=== PATIENT | male | born 1980 | race Caucasian/White ===

== ENCOUNTER 2020-10-17 08:40 | Outpatient (REF) | payer BC, SELFPAY ==
[2020-10-17 09:29] LABS: MANUAL DIFF FLAG NO
[2020-10-17 09:46] LABS: Glucose Urine UA NEG (NEG); Leukocyte Esterase Urine NEG (NEG); Nitrite Urine NEG (NEG); PH 7.5 (5.0-8.0); Urine Blood NEG (NEG); Urine Ketones NEG (NEG); Urine Protein NEG (NEG-TRACE)
[2020-10-17 09:47] LABS: Basophils Absolute Auto 0.1 X10*3/uL (0.0-0.2); Basophils Percent Auto 0.8 % (0-2); Eosinophils Absolute Auto 0.4 X10*3/uL (0.0-0.4); Eosinophils Percent Auto 5.3 % (0-4); Hematocrit 49.4 % (42-52); Hemoglobin 16.5 g/dl (14.0-18.0); Imm Gran Abs Auto 0.01 X10*3/uL (0.00-0.03); Imm Gran Pct Auto 0.1 % (0.0-0.4); Lymphocytes Absolute Auto 1.9 X10*3/uL (1.2-4.9); Lymphocytes Percent Auto 23.3 % (20-40); Mean Corpuscular HGB Conc 33.4 g/dl (31.0-36.0); Mean Corpuscular Hemoglobin 30.4 pg (27.0-33.0); Mean Corpuscular Volume 91.1 fL (80-98); Mean Platelet Volume 11.6 fL (9.4-12.4); Monocytes Absolute Auto 0.4 X10*3/uL (0.1-1.2); Monocytes Percent Auto 5.1 % (2-11); Neutrophils Absolute Auto 5.2 X10*3/uL (2.0-8.3); Neutrophils Percent Auto 65.4 % (45-73); Platelet Count 160 X10*3/uL (160-400); Red Blood Count 5.42 X10*6/uL (4.60-5.80); Red Cell Distribution Width 14.2 % (11.0-16.0)
[2020-10-17 09:48] LABS: Appearance Urine CLEAR; Color Urine YELLOW
[2020-10-17 09:57] LABS: Alanine Aminotransferase 33 U/L (0-40); Albumin Level 4.3 g/dL (3.5-5.0); Alkaline Phosphatase 63 U/L (39-117); Anion Gap 12 (12-20); Aspartate Amino Transferase 21 U/L (5-37); Bilirubin Total 0.7 mg/dL (0.0-1.0); Blood Urea Nitrogen 13 mg/dL (9-16); Calcium 8.6 mg/dL (8.4-10.2); Carbon Dioxide 25 mmol/L (22-29); Chloride 108 mmol/L (96-108); Cholesterol 176 mg/dL; Estimated Glomerular Filt Rate > 60; Glucose Random 99 mg/dL (60-115); HDL Cholesterol 42 mg/dL; LDL Cholesterol Calculated 121 mg/dl; Potassium 4.3 mmol/L (3.3-5.1); Sodium 141 mmol/L (135-145); Total Protein 6.5 g/dL (6.5-8.0); Triglycerides 65 mg/dL
[2020-10-17 10:26] LABS: Free T4 (Free Thyroxine) 1.02 ng/dL (0.71-1.85); Thyroid Stimulating Hormone 1.49 uIU/mL (0.32-4.0)
[2020-10-17 10:57] LABS: Prostate Specific Antigen Scr 0.69 ng/mL (<0.05-4.0)
[2020-10-19 04:29] LABS: Folate 11.3 ng/mL (> or = 4.0); Vitamin B12 787 pg/mL (200-900)
[2020-10-21 17:22] LABS: Testosterone, Total 484 ng/dL (250-1100)
== END 2020-10-17 08:41 | disposition home or self-care (01) ==
LOC: HO.LAB 08:40
PROVIDERS: PCP Internal Medicine; Visit Provider Internal Medicine
DX: Z12.5 Encounter for screening for malignant neoplasm of prostate (principal); N52.9 Male erectile dysfunction, unspecified; E78.00 Pure hypercholesterolemia, unspecified; R32 Unspecified urinary incontinence
CPT/HCPCS: 36415; 80053; 80061; 81003; 82607; 82746; 84153; 84403; 84439; 84443; 85025

== ENCOUNTER 2020-10-21 15:16 | Outpatient (REF) | payer BC, SELFPAY ==
--- NOTE | ~2020-10-21 | US_ITS ---
EXAMINATION: US PELVIS LIMITED (BLADDER) CLINICAL INFORMATION: Unspecified urinary incontinence. COMPARISON: Ultrasound abdomen complete 02/26/2019. TECHNIQUE: Real-time imaging of the bladder. Grayscale imaging and color Doppler are performed. FINDINGS: The bladder is distended symmetrically and shows no focal wall thickening, diverticulum, or bladder calculus. No debris at bladder base. There are bilateral ureteral jets at the bladder base as expected. Prevoid bladder volume 425 mL. Post void bladder residual volume 21 mL. The prostate volume is 49 mL. US/US bladder IMPRESSION: 1. No focal bladder wall thickening, diverticulum, or debris at bladder base. 2. Post void bladder residual volume 21 mL. 3. Prostate volume 49 mL.
== END 2020-10-21 15:17 | disposition home or self-care (01) ==
LOC: HO.HMGCX 15:16
PROVIDERS: PCP Internal Medicine; Visit Provider Internal Medicine
DX: R32 Unspecified urinary incontinence (principal)
CPT/HCPCS: 76857

== ENCOUNTER 2024-06-11 15:03 | Outpatient (AMB) | payer OTHER, SELFPAY ==
--- NOTE | 2024-06-11 15:07 | MHC.PC.OV ---
Vital Signs 06/11/24 15:09 Height 5 ft 11 in Weight 216 lb 2 oz BMI 30.1 BP 150/90 H Blood Pressure Location Lt brachial Position Sitting Pulse 88 Pulse Source Pulse Oximeter Pulse Oximetry (%) 97 Oxygen Delivery Method Room Air Intake Visit Reasons: Muscle pain Intake Note: Patient is here to follow up on Muscle pain all over body. Centrifugal Screen Tender Required: No Hose Operator: Not Required per policy Accompanied by: Self / Same As Patient Allergies No Known Allergies [No Known Allergies*] Allergy (Verified 06/17/24 15:09) Tobacco use date assessed: 06/11/24 Dental Screening Dental Screen Date: 06/11/24 Did you have a dental visit in the last 12 months?: No Did you have a dental problem in the last 6 months where you did not have access to dental care?: No Was dental information given to patient?: Patient has dentist HPI Muscle pain HPI Details 44-year-old male presents to the office for a sick visit. Patient has been complaining of muscle aches for the past few months. His job involves lifting heavy objects and loads. He feels sore all over. He is able to function and do all activities of daily living. Able to work at the same level. Patient was hunting in the summer and had a few tick bites. Not passing any high colored urine. No rash on the body. Continues to smoke. [facility] Medical History Obesity (BMI 30-39.9) Tobacco abuse Obstructive sleep apnea GERD (gastroesophageal reflux disease) Surgical History No pertinent past surgical history Family History Father No problems noted. Mother Bipolar 1 disorder Maternal Grandfather Polycythemia Sister Bipolar 1 disorder Ovarian ca Daughter Crohn's disease Paternal Grandfather Myocardial infarct Other Mental health problem Social History Housing: Apartment Alcohol intake: current Alcohol intake frequency: does not drink Patient Tobacco Use Status: Current everyday Tobacco user Tobacco use type: Cigarette Cigarette Packs Per Day: 1 Cigarettes Per Day: 20 e-Cigarette/Vaping Use: Never Used Second Hand Smoke Exposure: Yes service: No Current occupational status: employed Cognitive needs: No Hearing needs: No Vision needs: No Questionnaire PHQ-9 Over the last 2 weeks, how often have you been bothered by any of the following problems? 1. Little interest or pleasure in doing things: not at all 2. Feeling down, depressed, or hopeless: not at all 3. Trouble falling or staying asleep, or sleeping too much: not at all 4. Feeling tired or having little energy: not at all 5. Poor appetite or overeating: not at all 6. Feeling bad about yourself - or that you are a failure or have let yourself or your family down: not at all 7. Trouble concentrating on things, such as reading the newspaper or watching television: not at all 8. Moving or speaking so slowly that other people could have noticed. Or the opposite - being so fidgety or restless that you have been moving around a lot more than usual: not at all 9. Thoughts that you would be better off or of hurting yourself in some way: not at all Total score: 0 Depression Screening Interpretation: Negative Depression Screening Done: Yes Source: Developed by Drs. Giorgio Ruiz, Kay Lind, Raj Joseph and colleagues, with an educational jerome from [employer]. Thrive Questionnaire Date Thrive assessed: 06/11/24 I am a: Patient What is your living situation today?: I have a steady place to live Within the past 12 months, did the food you bought not last and you didn't have the money to get more?: Never true Within the past 12 months, did you worry whether your food would run out before you got money to buy more?: Never true Do you have trouble paying for medicines?: No Do you have trouble getting transportation to medical appointments?: No Do you have trouble paying your heating and electricity bill?: No Do you have trouble taking care of your child, family member or friend?: No Do you have trouble with day-to-day activities such as bathing, preparing meals, shopping, managing finances, etc.?: No Are you currently unemployed and looking for a job?: No Are you interested in more education?: No Currently or been in a relationship where the following occur: No concerns reported THRIVE Score: 0 AUDIT C Alcohol Use Questionnaire (AUDIT-C) 1. How often do you have a drink containing alcohol?: Never Total Score: 0 TED-7 AMB Questionnaire TED-7 Date TED - 7 assessed: 06/11/24 Feeling nervous, anxious, or on edge: 0 = Not at all Not being able to stop or control worryin = Not at all Worrying too much about different things: 0 = Not at all Trouble relaxin = Not at all Being so restless that it is hard to sit still: 0 = Not at all Becoming easily annoyed or irritable: 0 = Not at all Feeling afraid as if something awful might happen: 0 = Not at all Total TED-7 score (0-4 normal; 5-9 mild; 10-14 moderate; 15-21 severe): 0 Source: Developed by Drs. Giorgio Ruiz, Kay Lind, Raj Joseph and colleagues, with an educational jerome from [employer]. Physical exam (Primary Care) Vital Signs: Last Vital Signs Pulse 88 06/11/24 15:09 BP 150/90 H 06/11/24 15:09 Pulse Ox 97 06/11/24 15:09 Oxygen Delivery Method Room Air 06/11/24 15:09 BMI result Body Mass Index 30.1 Tobacco/Smoking Status: Tobacco use Status Tobacco use date assessed 06/11/24 06/11/24 15:13 Patient Tobacco Use Status Current everyday Tobacco 06/11/24 15:13 Tobacco use type Cigarette 06/11/24 15:13 e-Cigarette/Vaping Use Never Used 06/11/24 15:13 PHQ-9: PHQ-9 Score PHQ-9: Total score 0 06/11/24 15:14 Depression Screening Interpretation: Negative Thrive Assessment: Date of Thrive Assessment Date Thrive assessed 06/11/24 06/11/24 15:13 Currently or been in a relationship where the following occur: No concerns reported Const General: cooperative and healthy appearing Nutritional Appearance: well nourished Orientation/consciousness: patient oriented x3 Limitations: no limitations HENMT Head: Yes normal to inspection Eyes General: appearance normal, both eyes and all related structures Neck Neck: Yes normal visual inspection Chest Chest palpation & inspection: normal palpation of entire chest wall Resp Effort & Inspection: normal respiratory effort Neuro General: patient oriented x3 Coding Level of Care Code Est Pt Level 4 (46923) Complex EM visit Add On G2211 Diagnoses Myalgia M79.10 Assessment & Plan Assessment & Plan (1) Myalgia: Code(s): M79.10 - Myalgia, unspecified site Plan: Physical exam is unremarkable. Will get blood work done. Recheck in one week. Meloxicam started Orders: Orders Creatine Kinase Total 06/11/24.10 - Myalgia, unspecified site C Reactive Protein 06/11/24 M79.10 - Myalgia, unspecified site Basic Metabolic Panel 06/11/24.10 - Myalgia, unspecified site Lipid Panel 06/11/24.10 - Myalgia, unspecified site Liver Panel 06/11/24.10 - Myalgia, unspecified site Lyme IgG/IgM w/reflex to WB 06/11/24.10 - Myalgia, unspecified site Thyroid Stimulating Hormone 06/11/24.10 - Myalgia, unspecified site Erythrocyte Sedimentation Rate 06/11/24 M.10 - Myalgia, unspecified site UA and rflx microscopic 06/11/24.10 - Myalgia, unspecified site Medications: New meloxicam 15 mg PO DAILY 14 tabs 0RF
[2024-06-11 15:09] VITALS: BP 150/90; PULSE 88; O2SAT 97; BMI 30.1
== END 2024-06-11 15:25 | disposition home or self-care (01) ==
PROVIDERS: PCP Internal Medicine; Visit Provider Internal Medicine
DX: M79.10 Myalgia, unspecified site (principal)

== ENCOUNTER 2024-06-11 15:03 | Outpatient (REF) | payer OTHER, SELFPAY ==
[2024-06-11 16:14] LABS: Appearance Urine Clear; Color Urine Yellow; Glucose Urine UA Negative (Negative); Leukocyte Esterase Urine Negative (Negative); Nitrite Urine Negative (Negative); PH 6.5 (5.0-9.0); Urine Blood Negative (Negative); Urine Ketones Negative (Negative); Urine Protein Negative (Neg-Trace)
[2024-06-11 16:42] LABS: Erythrocyte Sedimentation Rate 2 MM/HR (0-15)
[2024-06-11 16:48] LABS: Albumin Level 4.5 g/dL (3.5-5.0); Anion Gap 12 (12-20); Aspartate Amino Transferase 29 U/L (5-37); Bilirubin Direct 0.2 mg/dL (0.0-0.5); Bilirubin Total 0.4 mg/dL (0.0-1.0); Blood Urea Nitrogen 8 mg/dL (9-16); C Reactive Protein 0.17 mg/dL (< or = 0.50); Calcium 9.3 mg/dL (8.4-10.2); Carbon Dioxide 29 mmol/L (22-29); Chloride 105 mmol/L (96-108); Cholesterol 169 mg/dL (<200); Estimated Glomerular Filt Rate > 60; Glucose Random 95 mg/dL (60-115); HDL Cholesterol 47 mg/dL (>40); LDL Cholesterol Calculated 109 mg/dL (<100); Potassium 4.2 mmol/L (3.3-5.1); Sodium 142 mmol/L (135-145); Triglycerides 65 mg/dL (<150)
[2024-06-11 17:10] LABS: Thyroid Stimulating Hormone 3.42 uIU/mL (0.32-4.0)
[2024-06-11 17:22] LABS: Alanine Aminotransferase 28 U/L (0-40); Alkaline Phosphatase 62 U/L (39-117)
[2024-06-12 18:18] LABS: Lyme Abs Screen <0.90 index
== END 2024-06-11 15:04 | disposition home or self-care (01) ==
LOC: HO.LAB 15:03
PROVIDERS: PCP Internal Medicine; Visit Provider Internal Medicine
DX: Z13.6 Encounter for screening for cardiovascular disorders (principal); M79.10 Myalgia, unspecified site
CPT/HCPCS: 36415; 80048; 80061; 80076; 81003; 82550; 84443; 85652; 86140; 86617; 86618; 96127

== ENCOUNTER 2024-06-17 15:04 | Outpatient (REF) | payer OTHER, SELFPAY ==
[2024-06-17 16:49] LABS: Hemoglobin 16.2 g/dl (14.0-18.0); Mean Corpuscular HGB Conc 33.8 g/dl (31.0-36.0); Mean Corpuscular Hemoglobin 30.9 pg (27.0-33.0); Mean Corpuscular Volume 91.6 fL (80.0-98.0); Mean Platelet Volume 12.3 fL (9.4-12.4); Platelet Count 151 X10*3/uL (160-400); Red Blood Count 5.24 X10*6/uL (4.60-5.80); Red Cell Distribution Width 14.3 % (11.0-16.0); White Blood Count 8.4 X10*3/uL (4.8-10.8)
[2024-06-17 17:13] LABS: Rheumatoid Factor < 13.0 IU/mL (<15.0)
[2024-06-17 17:19] LABS: Anion Gap 10 (12-20); Blood Urea Nitrogen 13 mg/dL (9-16); Calcium 8.5 mg/dL (8.4-10.2); Carbon Dioxide 29 mmol/L (22-29); Chloride 108 mmol/L (96-108); Estimated Glomerular Filt Rate > 60; Glucose Random 102 mg/dL (60-115); Potassium 4.6 mmol/L (3.3-5.1); Sodium 142 mmol/L (135-145)
[2024-06-17 17:33] LABS: Erythrocyte Sedimentation Rate 1 MM/HR (0-15)
== END 2024-06-17 15:05 | disposition home or self-care (01) ==
LOC: HO.LAB 15:04
PROVIDERS: PCP Internal Medicine; Visit Provider Internal Medicine
DX: M79.10 Myalgia, unspecified site (principal)
CPT/HCPCS: 36415; 80048; 82550; 85027; 85652; 86140; 86431

== ENCOUNTER 2024-06-17 15:04 | Outpatient (AMB) | payer OTHER, SELFPAY ==
--- NOTE | 2024-06-17 15:08 | MHC.PC.OV ---
Vital Signs 06/17/24 15:10 Height 5 ft 11 in Weight 218 lb 6 oz BMI 30.5 BP 124/70 Blood Pressure Location Lt brachial Position Sitting Pulse 91 Pulse Source Pulse Oximeter Pulse Oximetry (%) 95 Oxygen Delivery Method Room Air Intake Visit Reasons: 1 week f/u/ lab results Intake Note: Patient is here to follow up on Lab results. Bag Machine Tender Required: No Cover Inspector: Not Required per policy Accompanied by: Self / Same As Patient Allergies No Known Allergies [No Known Allergies*] Allergy (Verified 06/17/24 15:09) Tobacco use date assessed: 06/17/24 Dental Screening Dental Screen Date: 06/11/24 [facility] Medical History Obesity (BMI 30-39.9) Tobacco abuse Obstructive sleep apnea GERD (gastroesophageal reflux disease) Surgical History No pertinent past surgical history Family History Father No problems noted. Mother Bipolar 1 disorder Maternal Grandfather Polycythemia Sister Bipolar 1 disorder Ovarian ca Daughter Crohn's disease Paternal Grandfather Myocardial infarct Other Mental health problem Social History Housing: Apartment Alcohol intake: current Alcohol intake frequency: does not drink Patient Tobacco Use Status: Current everyday Tobacco user Tobacco use type: Cigarette Cigarette Packs Per Day: 1 Cigarettes Per Day: 20 e-Cigarette/Vaping Use: Never Used Second Hand Smoke Exposure: Yes service: No Current occupational status: employed Cognitive needs: No Hearing needs: No Vision needs: No Questionnaire Thrive Questionnaire Date Thrive assessed: 06/11/24 AUDIT C Alcohol Use Questionnaire (AUDIT-C) 3. How often do you have six or more drinks on one occasion?: Never Total Score: 0 TED-7 AMB Questionnaire TED-7 Date TED - 7 assessed: 06/11/24 Source: Developed by Drs. Giorgio Ruiz, Kay Lind, Raj Joseph and colleagues, with an educational jerome from [employer]. Physical exam (Primary Care) Vital Signs: Last Vital Signs Pulse 91 06/17/24 15:10 BP 124/70 06/17/24 15:10 Pulse Ox 95 06/17/24 15:10 Oxygen Delivery Method Room Air 06/17/24 15:10 BMI result Body Mass Index 30.5 Tobacco/Smoking Status: Tobacco use Status Tobacco use date assessed 06/17/24 06/17/24 15:13 Patient Tobacco Use Status Current everyday Tobacco 06/17/24 15:08 Tobacco use type Cigarette 06/17/24 15:08 e-Cigarette/Vaping Use Never Used 06/17/24 15:08 Thrive Assessment: Date of Thrive Assessment Date Thrive assessed 06/11/24 06/17/24 15:08 Coding Level of Care Code Est Pt Level 4 (01267) Complex EM visit Add On G2211 Diagnoses Myalgia M79.10 Assessment & Plan Assessment & Plan (1) Myalgia: Code(s): M79.10 - Myalgia, unspecified site Plan: CBC was not done in the last OV. CK levels were slightly elevated. Physical exam continues to be normal. 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 He spends a lot of time kneeling and crawling. I think his symptoms are from the kind of work he is doing. 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 Inflammatory markers are tested again. Repeat appt in one month. Ok for a televisit. Orders: Orders Complete Blood Count no Diff Today M79.10 - Myalgia, unspecified site Erythrocyte Sedimentation Rate Today M79.10 - Myalgia, unspecified site Rheumatoid Factor Today M79.10 - Myalgia, unspecified site Basic Metabolic Panel Today M79.10 - Myalgia, unspecified site C Reactive Protein Today M79.10 - Myalgia, unspecified site Creatine Kinase Total Today M79.10 - Myalgia, unspecified site
[2024-06-17 15:10] VITALS: BP 124/70; PULSE 91; O2SAT 95; BMI 30.5
== END 2024-06-17 15:48 | disposition home or self-care (01) ==
PROVIDERS: PCP Internal Medicine; Visit Provider Internal Medicine
DX: M79.10 Myalgia, unspecified site (principal)

== ENCOUNTER 2024-08-01 13:56 | Outpatient (AMB) | payer OTHER, SELFPAY ==
--- NOTE | 2024-08-01 13:57 | MHC.PC.OV ---
Intake Visit Reasons: F/U Results Clay Processing Labourer Required: No Bobbin Winder: Not Required per policy Accompanied by: Self / Same As Patient Allergies No Known Allergies [No Known Allergies*] Allergy (Verified 08/01/24 17:29) Medication List - Last Reconciled 08/01/24 by Leila Nava PA-C albuterol sulfate 90 mcg/actuation (ProAir HFA) 2 puffs inhalation QID PRN blood pressure monitor (Blood Pressure Kit) As directed cholecalciferol (vitamin D3) 1,250 mcg PO QWEEK 3 months cyclobenzaprine 10 mg PO Q8H ibuprofen 800 mg PO Q8H omeprazole 20 mg PO DAILY Tobacco use date assessed: 07/18/24 Dental Screening Dental Screen Date: 07/18/24 [facility] Medical History Obesity (BMI 30-39.9) Tobacco abuse Obstructive sleep apnea GERD (gastroesophageal reflux disease) Surgical History No pertinent past surgical history Family History Father No problems noted. Mother Bipolar 1 disorder Maternal Grandfather Polycythemia Sister Bipolar 1 disorder Ovarian ca Daughter Crohn's disease Paternal Grandfather Myocardial infarct Other Mental health problem Social History Housing: Apartment Alcohol intake: current Alcohol intake frequency: does not drink Patient Tobacco Use Status: Current everyday Tobacco user Tobacco use type: Cigarette Cigarette Packs Per Day: 1 Cigarettes Per Day: 20 e-Cigarette/Vaping Use: Never Used Second Hand Smoke Exposure: Yes service: No Current occupational status: employed Cognitive needs: No Hearing needs: No Vision needs: No Questionnaire Thrive Questionnaire Date Thrive assessed: 07/18/24 TED-7 AMB Questionnaire TED-7 Date TED - 7 assessed: 07/18/24 Source: Developed by Drs. Giorgio Ruiz, Kay Lnid, Raj Joseph and colleagues, with an educational jerome from [employer] Physical exam (Primary Care) Tobacco/Smoking Status: Tobacco use Status Tobacco use date assessed 07/18/24 08/01/24 13:58 Patient Tobacco Use Status Current everyday Tobacco 08/01/24 13:58 Tobacco use type Cigarette 08/01/24 13:58 e-Cigarette/Vaping Use Never Used 08/01/24 13:58 Thrive Assessment: Date of Thrive Assessment Date Thrive assessed 07/18/24 08/01/24 13:58 Telehealth Telehealth Telehealth Platform: Telephone Location of provider rendering services: practice address Location of patient: address on file Patient Identification confirmed using: Name, : Yes Telehealth method: voice only Patient verbally consented to treatment: Yes Patient verbally consented to billing insurance company: Yes Patient informed of any privacy concerns related to visit: Yes Minutes spent on Phone/Video with Pt.: 30 Coding Level of Care Code Tele Est Pt Level 4 (07184) Complex EM visit Add On G2211 Diagnoses Myalgia M79.10 Assessment & Plan Assessment & Plan (1) Myalgia: Code(s): M79.10 - Myalgia, unspecified site Category: Medical Plan Plan - Conduct X-rays of the cervical, thoracic, and lumbar spine, as well as bilateral hips, to evaluate musculoskeletal pain. - Referral reinstated to rheumatology for comprehensive autoimmune disorder evaluation. - Continued use of prescribed muscle relaxants at night. - Confirm vitamin D supplementation adherence. - Schedule further imaging and lab work once conducted. Orders: Orders Venous Lead Today M79.10 - Myalgia, unspecified site XR lumbar spine 4V min Today M79.10 - Myalgia, unspecified site XR hip BI w PEL1V Today M79.10 - Myalgia, unspecified site XR thoracic spine 3V Today M79.10 - Myalgia, unspecified site XR cervical spine min 6V Today M79.10 - Myalgia, unspecified site Medications: New ibuprofen 800 mg PO Q8H 90 tabs 1RF Discontinued meloxicam Discontinued Reason: Doctor's Order 15 mg PO DAILY 14 tabs 0RF meloxicam Discontinued Reason: Doctor's Order 15 mg PO DAILY 30 tabs 1RF Patient Instructions: Patient Instructions - Continue muscle relaxants as prescribed, taking them at night with food. - Adhere to the vitamin D regimen as previously recommended. - Undergo imaging studies and additional testing as soon as possible. - Monitor for any new or worsening symptoms, specifically joint pain, and report back if necessary. - Avoid physically strenuous activities to prevent exacerbation of symptoms. - Follow the rheumatology referral process to expedite the consultation. Scribe Plan - Not visible on output: History of Present Illness The patient is a 44-year-old male presenting with muscular pain. The pain has been persistent and multifocal, with symptoms spreading across various body regions such as the back, shoulders, and hips. Initially, tests revealed elevated muscle enzymes, which normalized upon retesting. The patient reported the pain persists, despite medication, including muscle relaxers, suggesting a potential diagnosis of widespread arthritis. The patient also experiences pain possibly related to shingles, characterized by a neuralgic quality. The pain began after a period of over-exertion, with no recent abdominal pain or weight loss reported. Previous diagnostic efforts included testing for Lyme disease, STDs, and rheumatoid factors, all returning negative results, and a vitamin D prescription was recommended. There has been no significant response to muscular pain treatments, warranting further evaluation. Social History - Denies current marital status and sexual activity. - Reports physical activity that may contribute to musculoskeletal strain. - Immunization history includes a past shingles outbreak affecting the facial area. Review of Systems - Musculoskeletal: Reports widespread muscular pain. - Integumentary: Denies rashes. - Gastrointestinal: Denies abdominal pain or weight loss. Results - Labs: Lyme disease test negative. - Rheumatologic tests: Negative for rheumatoid arthritis factors. - Muscle enzymes: Initially elevated, later normalized. Plan - Conduct X-rays of the cervical, thoracic, and lumbar spine, as well as bilateral hips, to evaluate musculoskeletal pain. - Referral reinstated to rheumatology for comprehensive autoimmune disorder evaluation. - Continued use of prescribed muscle relaxants at night. - Confirm vitamin D supplementation adherence. - Schedule further imaging and lab work once conducted. Patient was informed and verbally consented to the use of an ambient scribe for clinic note documentation during this visit. Discussion Notes I discussed with the patient the potential causes of his widespread muscular and joint pain, including arthritis and postherpetic neuralgia. I explained the risks and benefits of imaging studies and the need to examine any autoimmune disorders further. We discussed the urgency of the rheumatology referral and provisional therapy to manage his symptoms. I advised the patient on the monitoring of symptoms and the importance of imaging and lab results to offer a definitive diagnosis and appropriate treatment plan. The patient agreed to the management strategy, which includes night-time muscle relaxant use, pending further diagnostic clarification. Patient Instructions - Continue muscle relaxants as prescribed, taking them at night with food. - Adhere to the vitamin D regimen as previously recommended. - Undergo imaging studies and additional testing as soon as possible. - Monitor for any new or worsening symptoms, specifically joint pain, and report back if necessary. - Avoid physically strenuous activities to prevent exacerbation of symptoms. - Follow the rheumatology referral process to expedite the consultation.
--- OUTSIDE RECORDS SUMMARY | 2024-08-01 17:50 | XMS_ITS | Clinical Summary ---
Author Organization [facility] Facility Address [address] [place] [id number] Care Team Providers Care Pigment Processor Name Role Phone Unavailable Primary Care Provider Unavailabl e Social History Tobacco Use Types Packs/Day Years Used Date Smoking Tobacco: Never Assessed Sex and Gender Information Value Date Recorded Sex Assigned at Not on file Legal Sex Male 1:43 PM EDT Gender Identity Not on file Sexual Orientation Not on file Plan of Treatment Health Maintenance Due Date Last Done Comments Hepatitis B Vaccine (1 of 3 - 19+ 3-dose series) 1999 Influenza Vaccine (#1) 2024 Pneumococcal Vaccine: Pediat rics (0 to 5 Years) and At-Risk Patients (6 to 64 Years) Aged Out No longer eligi ble based on patient's age to complete [place] [id number] [facility]
--- OUTSIDE RECORDS SUMMARY | 2024-08-01 17:50 | XMS_ITS | Encounter Summary ---
Author Organization [employer] [facility] Address [address] [place] [address] Care Team Providers Care Cow Buyer Name Role Phone Mahnaz Wade MD Primary Care Provider [phone] Encounter Details Date Type Department Care Team Description 10/18/2017 Orders Only Adult Medicine [address] [id number] Ruth Hernandez, PADMA Social History Tobacco Use Types Packs/Day Years Used Date Smoking Tobacco: Every Day Cigarettes 1 16 Comments:trying to quit on h is own Alcohol Use Standard Drinks/Week Comments No 0 (1 standard drink = 0.6 oz pur e alcohol) Sex Assigned at Date Recorded Not on file documented as of this encounter Plan of Treatment Not on file documented as of this encounter Visit Diagnoses Not on filedocumented in this encounter Care Teams Cow Buyer Relationship Specialty Start Date End Date Mahnaz Wade MD [address] [place] [address] [phone] PCP - General Internal Medicine 02/20/17 documented as of this encounter
== END 2024-08-01 15:13 | disposition home or self-care (01) ==
LOC: HO.HMCH 13:56
PROVIDERS: PCP Internal Medicine; Visit Provider Physician Assistant Medical
DX: M79.18 Myalgia, other site (principal)

== ENCOUNTER 2024-09-07 08:30 | Outpatient (REF) | payer OTHER, SELFPAY | END 2024-09-07 08:31 | disposition home or self-care (01) | LOC: HO.LNP 08:30 | PROVIDERS: Visit Provider Physician Assistant Medical | DX: M79.10 Myalgia, unspecified site (principal) | CPT/HCPCS: 87177; 87209 ==

== ENCOUNTER 2024-12-16 07:38 | Outpatient (AMB) | payer OTHER, SELFPAY ==
--- OUTSIDE RECORDS SUMMARY | 2024-12-16 07:41 | XMS_ITS | Clinical Summary ---
Author Organization [facility] Facility Address [address] [place] [id number] Care Team Providers Care Piping Designer Name Role Phone Unavailable Primary Care Provider [...] - 19+ 3-dose series) 1999 Influenza Vaccine (Season Ended) 2025 Pneumococcal Vaccine: Peds ( 0 to 5 Years) and At-Risk Patients (6 to 49 Years) Aged Out No longer eligible b ased on patient's age to complete [place] [id number] [facility]
--- NOTE | 2024-12-16 07:44 | A.OFFVIS_ITS ---
Vital Signs 12/16/24 08:00 Height 5 ft 11 in Weight 222 lb 3.615 oz BMI 31.0 BP 142/90 H Blood Pressure Location Lt brachial Pulse 85 Pulse Source Pulse Oximeter Pulse Oximetry (%) 97 Oxygen Delivery Method Room Air Intake Visit Reasons: Myalgia Intake Note: Patient presents for Myalgia. Patient c/o stiff neck & both shoulders. C/O of pain on both arms, both wrist, both hands, fingers, both hips, both knees, both legs, both ankles, both feet and toes. Patient been having symptoms for the past 4 years. Patient just takes Ibuprofen it only works sometimes. Allergies No Known Allergies [No Known Allergies*] Allergy (Verified 12/16/24 07:58) Medication List - Last Reconciled 12/16/24 by Helena Martinez MD albuterol sulfate 90 mcg/actuation (ProAir HFA) 2 puffs inhalation QID PRN blood pressure monitor (Blood Pressure Kit) As directed cholecalciferol (vitamin D3) 1,250 mcg PO QWEEK 3 months ibuprofen 800 mg PO Q8H HPI Comments Details: Patient is a 44-year-old male with reactive airway disease, GERD, KEN, and peripheral vascular disease here today for evaluation of joint pain. Patient states that he has pain everywhere. This has been going on for the past 4-5 years Works in construction as a apprentice painter brush. Sometimes would work up to 17 hour days. No AM stiffness but will wake up with sore joints and muscles. Will get muscle contraction of the calves that takes long to dissipate. When they occur the calves get very itchy and then he gets a rash over the calves. But this self resolves. Hurts worse with rest and improves with movement No raynaud's, no oral/nasal ulcers, no alopecia Has taken NSAIDs including ibuprofen and meloxicam which helps sometimes and other times only take the edge off. Family history: Unsure of any significant autoimmune disease in the family [facility] Medical History Obesity (BMI 30-39.9) Tobacco abuse Obstructive sleep apnea GERD (gastroesophageal reflux disease) Surgical History No pertinent past surgical history Family History Father No problems noted. Mother Bipolar 1 disorder Maternal Grandfather Polycythemia Sister Bipolar 1 disorder Ovarian ca Daughter Crohn's disease Paternal Grandfather Myocardial infarct Other Mental health problem Social History Housing: Apartment Alcohol intake: current Alcohol intake frequency: does not drink Patient Tobacco Use Status: Current everyday Tobacco user Tobacco use type: Cigarette Cigarette Packs Per Day: 1 Cigarettes Per Day: 20 e-Cigarette/Vaping Use: Never Used Second Hand Smoke Exposure: Yes service: No Current occupational status: employed Cognitive needs: No Hearing needs: No Vision needs: No Review of Systems Const Details: Review of Systems Constitutional: Denies fever, chills, weight loss ENT: Denies vision changes, eye pain or eye redness, dental caries, dry mouth GI: Denies nausea, vomiting, diarrhea, abdominal pain, change in BM Pulm: Denies SOB, PATTERSON, hemoptysis, wheezing Cards: Denies chest pain, palpitations Skin: Denies Raynaud's, rash, nail changes, photosensitivity, NUDE MODEL: Denies headaches, weakness, paresthesias, recurrent falls MSK: as per HPI All other systems reviewed and are unremarkable except noted above Physical Exam Vital Signs: BMI result Body Mass Index 31.0 Vital signs reviewed Physical Examination CONSTITUITIONAL Patient alert and cooperative. Well appearing and in no apparent painful distress HEENT Conjunctiva and sclera clear. No lymphadenopathy. CHEST/RESPIRATORY SYSTEM Normal respiratory effort and able to speak in complete sentences. Clear to auscultation bilaterally. No crackles, rales, rhonchi, wheezes heard. CARDIAC SYSTEM Regular rate and rhythm. S1 and S2 heard no murmurs. Radial pulses intact bilaterally MSK Hands * Right Hand: Able to make a fist. No swelling or tenderness to palpation of these joints. No deformities noted. * Left Hand: Able to make a fist. No swelling or tenderness to palpation of these joints. Herbeden's node noted to 2nd DIP. hemorrhage noted under thumbnail Wrists * Right Wrist: Full ROM. 70 degrees of wrist flexion, 80 degrees of wrist extension. No swelling or TTP * Left Wrist: Full ROM. 70 degrees of wrist flexion, 80 degrees of wrist extension. No swelling or TTP Elbows * Right Elbow: Full ROM. No swelling or TTP. No TTP of the medial and lateral epicondyles * Left Elbow: Full ROM. No swelling or TTP. No TTP of the medial and lateral epicondyles Shoulders * Right shoulder: Full ROM. No swelling noted. No TTP of the AC joint, subacromial bursa or posterior shoulder * Left shoulder: Full ROM. No swelling noted. No TTP of the AC joint, subacromial bursa or posterior shoulder Hips * Right hip: Good ROM. No pain elicited with hip flexion/internal rotation/external rotation * Left hip: Good ROM. No pain elicited with hip flexion/internal rotation/external rotation Hip bursa: Tenderness to palpation bilaterally Knees * Right knee: Full ROM. No swelling noted. No TTP of the knee joint lie. TTP of pes anserine bursa. Faint crepitations felt * Left knee: Full ROM. No swelling noted. No TTP of the knee joint lie. TTP of pes anserine bursa. Faint crepitations felt Ankles * Right ankle: Good ankle dorsiflexion and plantar flexion. No swelling. No TTP of the ankle joint * Left ankle: Good ankle dorsiflexion and plantar flexion. No swelling. No TTP of the ankle joint Feet * Right foot: Negative squeeze test * Left foot: Negative squeeze test Tender points? * No tenderness to palpation of the bilateral trapezius, supraspinatus, anterior costochondral junctions, bilateral suboccipital muscle insertions SKIN No rashes Results Reviewed Results Reviewed: Laboratory Tests 06/11/24 06/17/24 06/17/24 15:44 15:55 16:00 WBC 8.4 RBC 5.24 Hgb 16.2 Hct 48.0 Plt Count 151 L ESR 1 Sodium 142 Potassium 4.6 Chloride 108 Carbon Dioxide 29 BUN 13 Creatinine 0.91 AST 29 ALT 28 Alkaline Phosphatase 62 Total Creatine Kinase 137 C-Reactive Protein 0.10 25-OH Vitamin D Total 07/19/24 16:55 WBC RBC Hgb Hct Plt Count ESR Sodium Potassium Chloride Carbon Dioxide BUN Creatinine AST ALT Alkaline Phosphatase Total Creatine Kinase C-Reactive Protein 25-OH Vitamin D Total 24.7 L Laboratory Tests 06/17/24 16:00 Rheumatoid Factor < 13.0 Assessment & Plan Assessment & Plan (1) Fibromyalgia: Code(s): M79.7 - Fibromyalgia Category: Medical Plan: #Fibromyalgia Patient is a 44-year-old male without any significant past medical history here today for evaluation of whole-body pains. History and exam without evidence of an underlying autoimmune rheumatic disease with no morning stiffness, no evidence of synovitis on examination and normal inflammatory markers and normal RF. Based on his elevated somatic symptom score and tender points on examination patient likely has fibromyalgia. I had a discussion with the patient about the diagnosis of fibromyalgia, that it is a non autoimmune disease of central desensitization. Unfortunately there is no treatment for this. I discussed exercise and stretching which patient endorsed that he is already doing, I recommended trial of gabapentin for the next month which he is willing to do. Works long hours and does not want to take any sedating medications such as muscle relaxants. Plan - Gabapentin 100mg for 30 days. Patient to call with response - Check CCP - RTC 6 months Plan I spent 30 minutes reviewing the record and labs, taking a history, examining the patient, discussing the treatment plan, ordering diagnostic work up and documenting in the medical record Orders: Orders Cyclic Citrullinated Peptide Today M79.7 - Fibromyalgia Medications: New gabapentin 100 mg PO BEDTIME 30 caps 0RF M79.7 - Fibromyalgia Coding Level of Care Code New Pt Level 3 (80941) Diagnoses Fibromyalgia M79.7
[2024-12-16 08:00] VITALS: BP 142/90; PULSE 85; O2SAT 97; BMI 31.0
== END 2024-12-16 08:35 | disposition home or self-care (01) ==
LOC: HO.RHE 07:38
PROVIDERS: PCP Internal Medicine; Visit Provider Student in an Organized Health Care Education/Training Program
DX: M79.7 Fibromyalgia (principal)
CPT/HCPCS: 99203

== ENCOUNTER 2024-12-16 08:42 | Outpatient (REF) | payer OTHER, SELFPAY ==
[2024-12-20 14:13] LABS: Cyclic Citrullinated Peptide <16 UNITS
== END 2024-12-16 08:43 | disposition home or self-care (01) ==
LOC: HO.10HDL 08:42
PROVIDERS: Visit Provider Student in an Organized Health Care Education/Training Program
DX: M79.7 Fibromyalgia (principal)
CPT/HCPCS: 36415; 86200